=== PATIENT | male | born 1990 | race Caucasian/White ===

== ENCOUNTER 2019-06-03 08:41 | Emergency (ER) | payer BC, OTHER ==
[~2019-06-03] VITALS: Ht 185.4 cm; Wt 104.7 kg
--- NOTE | 2019-06-03 09:16 | NUR ---
PT AMBULATORY WITH STEADY GAIT FROM TRIAGE TO ROOM. CHANGING INTO GOWN.
[2019-06-03] MEDS ORDERED: MULTIVITAMIN (09:27)
[2019-06-03] MEDS ORDERED: OMEPRAZOLE (09:27)
--- NOTE | 2019-06-03 09:27 | NUR ---
PT HERE FOR SWOLLEN UVULA- STATES HE WOKE UP WITH A SORE THROAT, SHOWERED, AND IT WENT AWAY. HOWEVER, WHEN HE LOOKED IN THE MIRROR HE NOTICED HIS UVULA WAS SWOLLEN- STATES IT IS NOT DIFFICULT TO SWALLOW BUT HE CAN FEEL THAT IT IS SWOLLEN. STATES HE EXPERIENCED POST NASAL DRIP THIS MORNING. DENIES BEING SICK RECENTLY. PT STATES [place]. STATES HE TRAVELS A LOT- JUST CAME FROM [place] AND WAS AROUND A LOT OF SMOKE. PT HAS HIGH BLOOD PRESSURE IN TRIAGE AND IN ROOM. PT STATES HE HAS HAD HIGH BP AT A DOCTOR'S OFFICE BEFORE BUT HAS NOT BEEN DIAGNOSED WITH IT. MD DAWSON AT BEDSIDE ASSESSING PT. NADN. CONNECTED TO MONITOR. DENIES NEEDS. SITTING ON GURNEY.
[2019-06-03] MEDS ORDERED: DEXAMETHASONE 4 MG TABLET ONE (09:48)
--- NOTE | 2019-06-03 09:52 | NUR ---
AT THIS TIME, PT STATES HE MAY NOT WANT ANY TREATMENT HERE IN THE ER. STATES HE IS NERVOUS ABOUT SIDE EFFECTS OF MEDICATIONS AND MAY WANT TO BE WORKED UP BY HIS OWN MD WHEN HE GETS HOME. PT STATES HE IS FLYING HOME ON SATURDAY. THIS RN EXPLAINED THE POSSIBLE SIDE EFFECTS OF MEDICATIONS AND POTENTIAL CONSEQUENCES OF NOT TAKING THE MEDICATIONS. PT STATES HIS UNDERSTANDING AND REQUESTS THAT THIS RN GIVE HIM A FEW MINUTES TO THINK ABOUT IT. LAB WAS AT BEDSIDE- PRESS SETUP OPERATOR STATES HE WILL COME BACK SOON TO CHECK IN.
[2019-06-03] MEDS ORDERED: DEXAMETHASONE 4 MG TABLET PO ONE (10:00)
--- NOTE | 2019-06-03 10:05 | NUR ---
PT MEDICATED PER EMAR. REFUSING LAB DRAW. WILL INFORM LABORATORY AND MD. HANSEN.
[2019-06-03 10:43] VITALS: BP 167/100
--- NOTE | 2019-06-03 11:12 | NUR ---
HAS SPOKEN WITH PT RE: DC. PT AWARE OF POC. GETTING DRESSED NOW.
== END 2019-06-03 11:26 | disposition home or self-care (01) ==
LOC: ED 11:09
DX: J02.8 Acute pharyngitis due to other specified organisms (principal); B97.89 Other viral agents as the cause of diseases classified elsewhere; I10 Essential (primary) hypertension
CPT/HCPCS: 87081; 87880; 99283